=== PATIENT | female | born 1975 | race Caucasian/White ===

== ENCOUNTER → 2016-12-04 | Outpatient (CLI) | payer BC ==
[~2016-12-04] MED LIST: ABILIFY30 MG PO; ADVAIR 250/28 DISKU1 IH; ADVAIR DISKUS 21 DSK IH; ADVAIR IH; ALLEGRA60 MG PO; AMBIEN 5MG TABLE5 MG PO; AMBIEN10 MG PO; ATROVENT INHALE14 GM IH; BCP TD; BENADRYL25 M2 PO; CLARITIN10 MG PO; COLESTID 1GM1 G PO; CYMBALTA 60MG60 MG PO; DEPAKOTE ER 50500 MG PO; DOXYCYCLINE 10100 MG PO; ELESTRIN0.06% TOP; EPI-PEN1 MG/ML MR; EVAMIST1.53 MG/Ac TD; FLONASE NASAL S16 GM NS; KLONOPIN 0.5MG0.5 MG PO; MULTI VITAMINS1 TAB PO; MULTIPLE VITAMI1 CAP PO; MVI; NARCO PO; NORCO 325 MG-7.1 TAB PO; NORVASC5 MG PO; PERCOCET 5/321 UDTAB PO; PHENERGAN 25 TA25 MG PO; PHENERGAN25 MG RC; PREDNISONE20 MG PO; PRILOSEC 20MG20 MG PO; PRINIVIL40 MG PO; PROTONIX 40MG T40 MG PO; SEROQUEL 1100 MG/TAB PO; TUSS PO; ULTRAM 50MG TAB50 MG PO; VICODIN 5/5001 UDTAB PO; Z-pak; ZESTRIL 20MG TA20 MG PO; ZOFRAN ODT4 MG PO; ZOLOFT PO; [UNRECOGNIZED DRUG - OTHER]; [UNRECOGNIZED DRUG - REMARK] PO
== END ==
LOC: BHSO 11:34
DX: F31.74 Bipolar disorder, in full remission, most recent episode manic (principal)

== ENCOUNTER → 2017-01-07 | Outpatient (CLI) | payer BC | LOC: COL.RAD 09:36 | DX: K75.81 Nonalcoholic steatohepatitis (NASH) (principal); R79.89 Other specified abnormal findings of blood chemistry ==

== ENCOUNTER → 2017-03-11 | Outpatient (CLI) | payer BC | LOC: MC.RAD 03-04 11:00 | DX: Z12.31 Encounter for screening mammogram for malignant neoplasm of breast (principal) ==

== ENCOUNTER → 2017-04-16 | Outpatient (CLI) | payer BC | LOC: BHSO 11:32 | DX: F31.73 Bipolar disorder, in partial remission, most recent episode manic (principal) ==

== ENCOUNTER 2017-05-23 11:04 | Emergency (ER) | payer BC ==
[~2017-05-23] VITALS: Ht 172.7 cm; Wt 109.1 kg
[~2017-05-23 11:04] MED LIST changes: -BENADRYL25 M2 PO; -COLESTID 1GM1 G PO; -MULTI VITAMINS1 TAB PO; -ULTRAM 50MG TAB50 MG PO; -ZOFRAN ODT4 MG PO
[2017-05-23 11:06] VITALS: TEMP 97.6
[2017-05-23] MEDS ORDERED: BENADRYL25 M2 PO (11:37)
[2017-05-23] MEDS ORDERED: COLESTID 1GM1 G PO (11:37)
[2017-05-23] MEDS ORDERED: MULTI VITAMINS1 TAB PO (11:38)
[2017-05-23 11:58] LABS: BASO % 0.3 % (0.0-2.0); EOS # 0.2 (0.0-0.7); EOS % 1.9 % (0-4.0); GRAN # 8.8 (1.4-6.5); GRAN % 76.7 % (42.2-75.2); HEMATOCRIT 44.5 % (37.0-47.0); HEMOGLOBIN 15.7 g/dl (12.5-16.0); LYMPH # 1.5 (1.2-3.4); LYMPH % 13.3 % (20.0-51.0); MEAN CELL VOLUME 91 fl (80.0-100.0); MEAN CORPUSCULAR HEMOGLOBIN 32 pg (27.0-31.0); MEAN CORPUSCULAR HGB CONC 35 g/dl (33.0-37.0); MEAN PLATELET VOLUME 10.1 fl (7.4-10.4); MONO # 0.9 (0.1-0.6); MONO % 7.5 % (1.7-9.3); PLATELET COUNT 211 K/mm3 (130-400); RED BLOOD COUNT 4.88 M/mm3 (4.10-5.30); REDCELL DISTRIBUTION WIDTH-CV 12.2 % (11.5-14.5); WHITE BLOOD COUNT 11.5 K/mm3 (4.8-10.8)
[2017-05-23 12:18] LABS: PH 6 (5-8); URINE APPEARANCE Clear; URINE BILIRUBIN Negative (NEGATIVE); URINE BLOOD Negative (NEGATIVE); URINE COLOR Yellow; URINE GLUCOSE Negative (NEGATIVE); URINE KETONE Negative (NEGATIVE); URINE RBC 0-2 /hpf; URINE UROBILINOGEN Negative (NEGATIVE); URINE WBC 0-2 /hpf
[2017-05-23 12:26] LABS: ADJUSTED CALCIUM 8.7 mg/dL (8.4-10.2); ALBUMIN 4.1 gm/dL (3.5-5.0); BILIRUBIN,TOTAL 1.1 mg/dL (0.0-1.0); C-REACTIVE PROTEIN 0.6 mg/dL (0.0-0.9); CALCIUM 8.8 mg/dL (8.4-10.2); CREATININE, serum 0.73 mg/dL (0.52-1.25); TOTAL PROTEIN 6.8 gm/dL (6.4-8.2)
[2017-05-23] MEDS ORDERED: ZOFRAN ODT4 MG PO (14:15)
[2017-05-23 14:32] VITALS: BP 122/72; PULSE 80
== END 2017-05-23 14:34 | disposition home or self-care (01) ==
LOC: COL.ER 11:04
PROVIDERS: Nurse Practitioner
DX: R11.2 Nausea with vomiting, unspecified (principal); R19.7 Diarrhea, unspecified; I10 Essential (primary) hypertension; F31.9 Bipolar disorder, unspecified; F41.9 Anxiety disorder, unspecified; F17.210 Nicotine dependence, cigarettes, uncomplicated; Z87.19 Personal history of other diseases of the digestive system
CPT/HCPCS: J2405; J2550; J7030

== ENCOUNTER 2017-05-24 19:13 | Emergency (ER) | payer BC ==
[~2017-05-24] VITALS: Ht 172.7 cm; Wt 109.1 kg
[~2017-05-24 19:13] MED LIST changes: +BENADRYL25 M2 PO; +COLESTID 1GM1 G PO; +MULTI VITAMINS1 TAB PO; +ZOFRAN ODT4 MG PO
[2017-05-24 19:30] VITALS: TEMP 97.6
[2017-05-24 20:18] LABS: BASO % 0.3 % (0.0-2.0); EOS # 0.1 (0.0-0.7); EOS % 1.5 % (0-4.0); GRAN # 3.4 (1.4-6.5); GRAN % 50.8 % (42.2-75.2); HEMATOCRIT 42.2 % (37.0-47.0); HEMOGLOBIN 14.9 g/dl (12.5-16.0); LYMPH # 2.3 (1.2-3.4); LYMPH % 33.4 % (20.0-51.0); MEAN CELL VOLUME 91 fl (80.0-100.0); MEAN CORPUSCULAR HEMOGLOBIN 32 pg (27.0-31.0); MEAN CORPUSCULAR HGB CONC 35 g/dl (33.0-37.0); MEAN PLATELET VOLUME 9.9 fl (7.4-10.4); MONO # 0.9 (0.1-0.6); MONO % 13.9 % (1.7-9.3); PLATELET COUNT 208 K/mm3 (130-400); RED BLOOD COUNT 4.66 M/mm3 (4.10-5.30); REDCELL DISTRIBUTION WIDTH-CV 11.9 % (11.5-14.5); WHITE BLOOD COUNT 6.8 K/mm3 (4.8-10.8)
[2017-05-24 20:26] LABS: ADJUSTED CALCIUM 9.1 mg/dL (8.4-10.2); ALBUMIN 4.5 gm/dL (3.5-5.0); BILIRUBIN,TOTAL 1.5 mg/dL (0.0-1.0); CALCIUM 9.5 mg/dL (8.4-10.2); CREATININE, serum 0.73 mg/dL (0.52-1.25); POTASSIUM 3.8 mmol/L (3.4-5.0); TOTAL PROTEIN 7.4 gm/dL (6.4-8.2)
[2017-05-24 21:57] VITALS: BP 117/70; PULSE 79
== END 2017-05-24 23:10 | disposition home or self-care (01) ==
LOC: COL.ER 19:13
PROVIDERS: Emergency Medicine
DX: R10.84 Generalized abdominal pain (principal); R11.2 Nausea with vomiting, unspecified; R19.7 Diarrhea, unspecified; K58.9 Irritable bowel syndrome, unspecified; R55 Syncope and collapse
CPT/HCPCS: J1170; J2405; J2550; J7030

== ENCOUNTER 2017-05-26 11:23 | Emergency (ER) | payer BC ==
[~2017-05-26] VITALS: Ht 172.7 cm; Wt 109.1 kg
[2017-05-26 11:26] VITALS: TEMP 99.1
[2017-05-26 13:06] LABS: HEMATOCRIT 39.2 % (37.0-47.0); HEMOGLOBIN 13.7 g/dl (12.5-16.0); MEAN CELL VOLUME 92 fl (80.0-100.0); MEAN CORPUSCULAR HEMOGLOBIN 32 pg (27.0-31.0); MEAN CORPUSCULAR HGB CONC 35 g/dl (33.0-37.0); MEAN PLATELET VOLUME 10.3 fl (7.4-10.4); PLATELET COUNT 187 K/mm3 (130-400); RED BLOOD COUNT 4.26 M/mm3 (4.10-5.30); REDCELL DISTRIBUTION WIDTH-CV 11.9 % (11.5-14.5)
[2017-05-26 13:12] LABS: PH 8 (5-8); SQUAMOUS EPITHELIAL 0-2 /hpf; URINE APPEARANCE Clear; URINE BACTERIA None Seen /hpf; URINE BILIRUBIN Negative (NEGATIVE); URINE BLOOD 1+ (NEGATIVE); URINE COLOR Yellow; URINE GLUCOSE Negative (NEGATIVE); URINE KETONE Negative (NEGATIVE); URINE RBC 0-2 /hpf; URINE UROBILINOGEN Negative (NEGATIVE); URINE WBC 0-2 /hpf
[2017-05-26 13:14] LABS: ADD PATHOLOGY DIFF REVIEW NO
[2017-05-26 13:18] LABS: ADJUSTED CALCIUM 9.2 mg/dL (8.4-10.2); BILIRUBIN,TOTAL 0.8 mg/dL (0.0-1.0); C-REACTIVE PROTEIN 0.9 mg/dL (0.0-0.9); CALCIUM 9.2 mg/dL (8.4-10.2); CREATININE, serum 0.72 mg/dL (0.52-1.25); POTASSIUM 3.8 mmol/L (3.4-5.0)
[2017-05-26 13:56] LABS: BAND 3 % (0-10); EOSINOPHIL 3 % (0-4); NEUTROPHILS 44 % (42.0-75.2); TOTAL CELLS COUNTED 100
[2017-05-26 13:57] LABS: PLATELET ESTIMATE NORMAL (NORMAL)
[2017-05-26 14:22] VITALS: BP 119/81; PULSE 62
[2017-05-26] MEDS ORDERED: PHENERGAN25 MG RC (14:38)
[2017-05-26] MEDS ORDERED: ULTRAM 50MG TAB50 MG PO (14:38)
== END 2017-05-26 14:51 | disposition home or self-care (01) ==
LOC: COL.ER 11:23
PROVIDERS: Emergency Medicine
DX: K52.9 Noninfective gastroenteritis and colitis, unspecified (principal); S09.8XXA Other specified injuries of head, initial encounter; F41.9 Anxiety disorder, unspecified; R55 Syncope and collapse; K21.9 Gastro-esophageal reflux disease without esophagitis; F32.9 Major depressive disorder, single episode, unspecified; I10 Essential (primary) hypertension; K58.9 Irritable bowel syndrome, unspecified; F17.210 Nicotine dependence, cigarettes, uncomplicated; Z90.710 Acquired absence of both cervix and uterus; Z87.42 Personal history of other diseases of the female genital tract; X58.XXXA Exposure to other specified factors, initial encounter
CPT/HCPCS: J1170; J2060; J2765; J3010; J7030; Q9967

== ENCOUNTER → 2017-07-02 | Outpatient (CLI) | payer BC ==
[~2017-07-02] MED LIST changes: +ULTRAM 50MG TAB50 MG PO
== END ==
LOC: BHSO 10:56
DX: F41.1 Generalized anxiety disorder (principal)

== ENCOUNTER → 2017-08-30 | Outpatient (CLI) | payer BC | LOC: BHSO 11:27 | DX: F31.73 Bipolar disorder, in partial remission, most recent episode manic (principal) ==

== ENCOUNTER → 2017-10-08 | Outpatient (CLI) | payer BC | LOC: BHSO 10:58 | DX: F31.73 Bipolar disorder, in partial remission, most recent episode manic (principal) | CPT/HCPCS: G0463 ==

== ENCOUNTER → 2017-11-26 | Outpatient (CLI) | payer BC | LOC: COL.RAD 08:11 | DX: K76.0 Fatty (change of) liver, not elsewhere classified (principal) ==

== ENCOUNTER → 2018-01-04 | Outpatient (CLI) | payer BC | LOC: BHSO 10:47 | DX: F31.31 Bipolar disorder, current episode depressed, mild (principal) | CPT/HCPCS: G0463 ==

== ENCOUNTER → 2018-04-08 | Outpatient (CLI) | payer BC | LOC: BHSO 10:16 | DX: F41.0 Panic disorder [episodic paroxysmal anxiety] (principal) | CPT/HCPCS: G0463 ==

== ENCOUNTER → 2018-04-22 | Outpatient (CLI) | payer BC | LOC: MC.RAD 11:11 | DX: Z12.31 Encounter for screening mammogram for malignant neoplasm of breast (principal) ==

== ENCOUNTER → 2018-12-09 | Outpatient (CLI) | payer OTHER ==
[~2018-12-09] MED LIST changes: +CEPHALEXIN500 M1 PO; +ZOFRAN 4MG T4 MG/TAB PO
== END ==
LOC: COL.RAD 09:35
DX: K75.81 Nonalcoholic steatohepatitis (NASH) (principal)

== ENCOUNTER 2018-12-12 11:37 | Emergency (ER) | payer OTHER ==
[~2018-12-12] VITALS: Ht 172.7 cm; Wt 125.0 kg
[~2018-12-12 11:37] MED LIST changes: -CEPHALEXIN500 M1 PO; -ZOFRAN 4MG T4 MG/TAB PO
[2018-12-12 11:45] VITALS: TEMP 98.5
[2018-12-12 12:34] LABS: BASO % 0.3 % (0.0-2.0); EOS # 0.3 (0.0-0.7); EOS % 2.8 % (0-4.0); GRAN # 5.3 (1.4-6.5); GRAN % 53.3 % (42.2-75.2); HEMATOCRIT 46.3 % (37.0-47.0); HEMOGLOBIN 15.7 g/dl (12.5-16.0); LYMPH # 3.5 (1.2-3.4); LYMPH % 34.7 % (20.0-51.0); MEAN CELL VOLUME 93 fl (80.0-100.0); MEAN CORPUSCULAR HEMOGLOBIN 32 pg (27.0-31.0); MEAN CORPUSCULAR HGB CONC 34 g/dl (33.0-37.0); MONO # 0.9 (0.1-0.6); MONO % 8.7 % (1.7-9.3); PLATELET COUNT 188 K/mm3 (130-400); RED BLOOD COUNT 4.99 M/mm3 (4.10-5.30); REDCELL DISTRIBUTION WIDTH-CV 12.8 % (11.5-14.5)
[2018-12-12 12:47] LABS: ALBUMIN 4.2 gm/dL (3.5-5.0); BILIRUBIN,TOTAL 1.1 mg/dL (0.0-1.0); C-REACTIVE PROTEIN 0.7 mg/dL (0.0-0.9); CREATININE, serum 0.79 mg/dL (0.52-1.25); POTASSIUM 4.1 mmol/L (3.4-5.0); TOTAL PROTEIN 7.6 gm/dL (6.4-8.2)
[2018-12-12 13:53] LABS: COLLECTION METHOD CLEAN CATCH
[2018-12-12 14:08] LABS: MUCOUS Present /lpf; PH 6 (5-8); URINE APPEARANCE Hazy; URINE BACTERIA None Seen /hpf; URINE BILIRUBIN Negative (NEGATIVE); URINE BLOOD Negative (NEGATIVE); URINE COLOR Amber; URINE GLUCOSE Negative (NEGATIVE); URINE KETONE Trace (NEGATIVE); URINE LEUKOCYTE ESTERASE Negative (NEGATIVE); URINE NITRATE Negative (NEGATIVE); URINE PROTEIN(semi-quant) Negative (NEGATIVE)
[2018-12-12] MEDS ORDERED: ZOFRAN 4MG T4 MG/TAB PO (14:25)
[2018-12-12] MEDS ORDERED: CEPHALEXIN500 M1 PO (14:25)
[2018-12-12 14:39] VITALS: BP 117/83; PULSE 86
== END 2018-12-12 14:41 | disposition home or self-care (01) ==
LOC: COL.ER 11:37
PROVIDERS: Physician Assistant
DX: K52.9 Noninfective gastroenteritis and colitis, unspecified (principal); N39.0 Urinary tract infection, site not specified; F31.9 Bipolar disorder, unspecified; F17.210 Nicotine dependence, cigarettes, uncomplicated; G47.00 Insomnia, unspecified; K21.9 Gastro-esophageal reflux disease without esophagitis; I10 Essential (primary) hypertension; F41.9 Anxiety disorder, unspecified; Z90.89 Acquired absence of other organs; Z90.710 Acquired absence of both cervix and uterus
CPT/HCPCS: J2405; J7030

== ENCOUNTER 2019-05-23 22:39 | Emergency (ER) | payer BC ==
[~2019-05-23] VITALS: Ht 172.7 cm; Wt 122.7 kg
[~2019-05-23 22:39] MED LIST changes: +CEPHALEXIN500 M1 PO; +ZOFRAN 4MG T4 MG/TAB PO
[2019-05-23 22:43] VITALS: TEMP 99.1
[2019-05-23 23:12] LABS: BASO % 0.3 % (0.0-2.0); EOS # 0.2 (0.0-0.7); EOS % 1.7 % (0-4.0); GRAN # 4.8 (1.4-6.5); GRAN % 54.6 % (42.2-75.2); HEMATOCRIT 43.3 % (37.0-47.0); HEMOGLOBIN 14.8 g/dl (12.5-16.0); LYMPH # 2.7 (1.2-3.4); MEAN CELL VOLUME 93 fl (80.0-100.0); MEAN CORPUSCULAR HEMOGLOBIN 32 pg (27.0-31.0); MEAN CORPUSCULAR HGB CONC 34 g/dl (33.0-37.0); MEAN PLATELET VOLUME 10.2 fl (7.4-10.4); MONO # 1.1 (0.1-0.6); MONO % 12.1 % (1.7-9.3); PLATELET COUNT 149 K/mm3 (130-400); RED BLOOD COUNT 4.66 M/mm3 (4.10-5.30); REDCELL DISTRIBUTION WIDTH-CV 12.7 % (11.5-14.5)
[2019-05-23 23:27] LABS: ALBUMIN 4.1 gm/dL (3.5-5.0); C-REACTIVE PROTEIN 1.2 mg/dL (0.0-0.9); CALCIUM 8.7 mg/dL (8.4-10.2); CREATININE, serum 0.79 (0.52-1.25); MAGNESIUM 1.7 mg/dL (1.6-2.3); POTASSIUM 3.9 mmol/L (3.4-5.0); TOTAL PROTEIN 7.1 gm/dL (6.4-8.2)
[2019-05-24] MEDS ORDERED: CYMBALTA 30MG30 MG PO (00:48)
[2019-05-24] MEDS ORDERED: CYMBALTA 60MG60 MG PO (00:48)
[2019-05-24] MEDS ORDERED: SEROQUEL 200MG200 MG PO (00:49)
[2019-05-24] MEDS ORDERED: ESTRACE 1MG1 MG/TAB PO (00:49)
[2019-05-24] MEDS ORDERED: NORCO 325 MG-7.1 TAB PO (00:50)
[2019-05-24] MEDS ORDERED: BENADRYL25 M2 PO (00:51)
[2019-05-24] MEDS ORDERED: KLONOPIN 1MG1 MG PO (00:51)
[2019-05-24 01:46] LABS: COLLECTION METHOD CLEAN CATCH
[2019-05-24 01:57] LABS: MUCOUS Present /lpf; PH 5 (5-8); URINE APPEARANCE Hazy; URINE BACTERIA None Seen /hpf; URINE BILIRUBIN Negative (NEGATIVE); URINE BLOOD Negative (NEGATIVE); URINE COLOR Amber; URINE GLUCOSE Negative (NEGATIVE); URINE KETONE Negative (NEGATIVE); URINE LEUKOCYTE ESTERASE Negative (NEGATIVE); URINE NITRATE Negative (NEGATIVE); URINE PROTEIN(semi-quant) Negative (NEGATIVE); URINE RBC 0-2 /hpf; URINE UROBILINOGEN Negative (NEGATIVE)
[2019-05-24] MEDS ORDERED: ZOFRAN 4MG T4 MG/TAB PO (02:51)
[2019-05-24] MEDS ORDERED: COMPAZINE 110 MG/TAB PO (02:51)
[2019-05-24 03:05] VITALS: BP 130/85; PULSE 80
== END 2019-05-24 03:11 | disposition home or self-care (01) ==
LOC: COL.ER 22:39
PROVIDERS: Emergency Medicine
DX: R10.84 Generalized abdominal pain (principal); R55 Syncope and collapse; R11.2 Nausea with vomiting, unspecified; R19.7 Diarrhea, unspecified; E66.9 Obesity, unspecified; I10 Essential (primary) hypertension; J45.909 Unspecified asthma, uncomplicated; F17.210 Nicotine dependence, cigarettes, uncomplicated; K21.9 Gastro-esophageal reflux disease without esophagitis; F31.9 Bipolar disorder, unspecified; Z88.6 Allergy status to analgesic agent; Z88.1 Allergy status to other antibiotic agents; Z90.710 Acquired absence of both cervix and uterus
CPT/HCPCS: J0780; J2270; J2405; J7030

== ENCOUNTER → 2019-06-08 | Outpatient (CLI) | payer BC ==
[~2019-06-08] MED LIST changes: +COMPAZINE 110 MG/TAB PO; +CYMBALTA 30MG30 MG PO; +ESTRACE 1MG1 MG/TAB PO; +KLONOPIN 1MG1 MG PO; +SEROQUEL 200MG200 MG PO
== END ==
LOC: COL.RAD 08:36
DX: K75.81 Nonalcoholic steatohepatitis (NASH) (principal)

== ENCOUNTER 2019-06-14 13:04 | Day surgery (SDC) | payer BC ==
[~2019-06-14] VITALS: Ht 172.7 cm; Wt 124.1 kg
[2019-06-14] MEDS ORDERED: NATURAL MAGNES200 MG PO (13:43)
[2019-06-14] MEDS ORDERED: B COMPLEX #11 TAB (13:44)
[2019-06-14] MEDS ORDERED: PROBIOTIC ACID1 EAC3 PO (13:45)
[2019-06-14 14:16] VITALS: BP 114/69; PULSE 85; TEMP 97.9
[2019-06-14 15:20] VITALS: BP 124/79; PULSE 73; TEMP 97.6
[2019-06-14 15:35] VITALS: BP 122/77; PULSE 82
[2019-06-14 15:50] VITALS: BP 103/66; PULSE 76
[2019-06-14 16:05] VITALS: BP 108/74; PULSE 75
--- NOTE | 2019-06-14 16:15 | NUR ---
PT RETURNED FROM [facility] INTO BAY #4. PT ALERT, SLEEPY, ORIENTATED TO NAME AND PLACE. LUNGS CLEAR TO ALL [place]. HRR, BOWEL SOUNDS HYPO, PRESENT. DENIES N/V/D AT THIS TIME. OFFERED APPLE JUICE AND WATER. WILL MONITOR PROGRESS.
--- NOTE | 2019-06-14 16:27 | NUR ---
PT TOLERATED FOOD AND FLIUDS WITHOUT DIFFICUTLY. CONT TO DENY PAIN, NAUSEA, VOMITING OR DIARRHEA. IVF DC'D TO LEFT WRIST. TOLERATED WELL. WILL MONITOR
--- NOTE | 2019-06-14 16:30 | NUR ---
PT A/OX3, DENIES PAIN, NAUSEA OR VOMITING. DISCHARGE INSTRUCTIONS GIVEN. PT AND VOICE UNDERSTANDING. PT DC'D TO FAMILY VEHICLE VIA W/C. DRIVING.
== END 2019-06-14 16:33 | disposition home or self-care (01) ==
LOC: SDCO 13:04
DX: K29.71 Gastritis, unspecified, with bleeding (principal); R19.7 Diarrhea, unspecified; K64.4 Residual hemorrhoidal skin tags; K62.89 Other specified diseases of anus and rectum; Z79.899 Other long term (current) drug therapy; I10 Essential (primary) hypertension; K75.81 Nonalcoholic steatohepatitis (NASH); F17.210 Nicotine dependence, cigarettes, uncomplicated; K21.9 Gastro-esophageal reflux disease without esophagitis; F41.0 Panic disorder [episodic paroxysmal anxiety]; F31.9 Bipolar disorder, unspecified; E66.01 Morbid (severe) obesity due to excess calories; Z68.41 Body mass index [BMI] 40.0-44.9, adult
CPT/HCPCS: J2405; J2704; J7120

== ENCOUNTER → 2019-07-06 | Outpatient (CLI) | payer BC ==
[~2019-07-06] MED LIST changes: +B COMPLEX #11 TAB; +NATURAL MAGNES200 MG PO; +PROBIOTIC ACID1 EAC3 PO
== END ==
LOC: MC.RAD 09:41
DX: Z12.31 Encounter for screening mammogram for malignant neoplasm of breast (principal)

== ENCOUNTER 2019-10-30 12:04 | Emergency (ER) | payer BC ==
[2019-10-30 12:06] VITALS: TEMP 98
[2019-10-30 13:26] LABS: HEMATOCRIT 47.5 % (37.0-47.0); HEMOGLOBIN 16.4 g/dl (12.5-16.0); MEAN CELL VOLUME 92 fl (80.0-100.0); MEAN CORPUSCULAR HEMOGLOBIN 32 pg (27.0-31.0); MEAN CORPUSCULAR HGB CONC 35 g/dl (33.0-37.0); MEAN PLATELET VOLUME 10.5 fl (7.4-10.4); PLATELET COUNT 174 K/mm3 (130-400); RED BLOOD COUNT 5.17 M/mm3 (4.10-5.30); REDCELL DISTRIBUTION WIDTH-CV 12.4 % (11.5-14.5)
[2019-10-30 13:32] LABS: ALANINE AMINOTRANSFERASE 102 U/L (9-52); ALBUMIN 4.6 gm/dL (3.5-5.0); ALKALINE PHOSPHATASE 123 U/L (50-136); ANION GAP 10 mmol/L (7-16); AST,SGOT 81 U/L (15-37); BILIRUBIN,TOTAL 0.7 mg/dL (0.0-1.0); BLOOD UREA NITROGEN 17 mg/dL (7-17); C-REACTIVE PROTEIN < 0.5 mg/dL (0.0-0.9); CALCIUM 9.5 mg/dL (8.4-10.2); CARBON DIOXIDE 24 mmol/L (22-30); CHLORIDE 106 mmol/L (98-107); CREATININE, serum 0.69 (0.52-1.25); GLUCOSE 115 mg/dL (74-106); LIPASE 175 U/L (23-300); POTASSIUM 4.5 mmol/L (3.4-5.0); SODIUM 140 mmol/L (137-145); TOTAL PROTEIN 7.9 gm/dL (6.4-8.2)
[2019-10-30 13:43] LABS: TROPONIN-I < 0.012 ng/mL (0.000-0.035)
[2019-10-30 14:09] LABS: BAND 9 % (0-10); EOSINOPHIL 1 % (0-4); LYMPHOCYTE 12 % (20.0-51.0); NEUTROPHILS 68 % (42.0-75.2); PLATELET ESTIMATE NORMAL (NORMAL)
[2019-10-30] MEDS ORDERED: PHENERGAN 25 TA25 MG PO (14:37)
[2019-10-30 14:40] VITALS: BP 120/68; PULSE 87
== END 2019-10-30 15:10 | disposition home or self-care (01) ==
LOC: COL.ER 12:04
PROVIDERS: Emergency Medicine
DX: R11.2 Nausea with vomiting, unspecified (principal); R10.13 Epigastric pain; Z90.89 Acquired absence of other organs
CPT/HCPCS: J2270; J2550; J7030; Q9967

== ENCOUNTER → 2019-11-24 | Outpatient (CLI) | payer BC ==
[~2019-11-24] VITALS: Ht 172.7 cm; Wt 125.4 kg
[~2019-11-24] MED LIST changes: +IMODIUM 2MG CAPS2 MG PO; +Work Release
[2019-11-24 08:41] VITALS: BP 132/94; PULSE 71
[2019-11-24 09:28] VITALS: BP 145/90; PULSE 65
[2019-11-24 09:32] VITALS: BP 122/74; PULSE 99
[2019-11-24 09:33] VITALS: BP 151/83; PULSE 98
[2019-11-24 09:34] VITALS: BP 138/81; PULSE 97
[2019-11-24 09:35] VITALS: BP 137/82; PULSE 95
== END ==
LOC: COL.CARD 07:57
DX: R55 Syncope and collapse (principal)
CPT/HCPCS: A9500

== ENCOUNTER 2019-12-01 07:19 | Day surgery (SDC) | payer BC ==
[2019-12-01] VITALS (14 sets, daily range): BP systolic 105–178; BP diastolic 78–110; PULSE 74–94; TEMP 98.6
[~2019-12-01] VITALS: Ht 172.7 cm; Wt 123.3 kg
[~2019-12-01 07:19] MED LIST changes: +CLARITIN 1010 MG/TAB PO; -CLARITIN10 MG PO; -SEROQUEL 200MG200 MG PO
[2019-12-01 08:10] LABS: HEMATOCRIT 42.6 % (37.0-47.0); HEMOGLOBIN 14.5 g/dl (12.5-16.0); MEAN CELL VOLUME 93 fl (80.0-100.0); MEAN CORPUSCULAR HEMOGLOBIN 32 pg (27.0-31.0); MEAN CORPUSCULAR HGB CONC 34 g/dl (33.0-37.0); MEAN PLATELET VOLUME 10.1 fl (7.4-10.4); PLATELET COUNT 174 K/mm3 (130-400); RED BLOOD COUNT 4.57 M/mm3 (4.10-5.30); REDCELL DISTRIBUTION WIDTH-CV 12.6 % (11.5-14.5)
[2019-12-01 08:22] LABS: PROTHROMBIN TIME 11.5 SECONDS (9.7-12.8)
[2019-12-01 08:23] LABS: CALCIUM 9.3 mg/dL (8.4-10.2); CREATININE, serum 0.79 (0.52-1.25); POTASSIUM 4.2 mmol/L (3.4-5.0)
[2019-12-01 08:25] LABS: PARTIAL THROMBOPLASTIN TIME 34.9 SECONDS (26.0-37.0)
[2019-12-01] MEDS ORDERED: PHENERGAN 25 TA25 MG PO (08:25)
[2019-12-01] MEDS ORDERED: VITAMIN B COMPL1 SGL PO (08:27)
[2019-12-01] MEDS ORDERED: PRINIVIL5 MG PO (08:29)
--- NOTE | 2019-12-01 09:08 | NUR ---
SEE MERGE DOCUMENTATION FOR MEDICATION ADMINISTRATION TIMES AND INTRA/POST PROCEDURE SEDATION ASSESSMENTS.
--- NOTE | 2019-12-01 10:00 | NUR ---
Report received from TAIWO Toscano.Will await patient's arrival.
--- NOTE | 2019-12-01 15:10 | NUR ---
Discharge instructions given to pt.Pt verbalizes understanding.INT removed,catheter tip intact.Pt escorted out via wheelchair by this nurse.
== END 2019-12-01 16:17 | disposition home or self-care (01) ==
LOC: COL.CAR 07:19
PROVIDERS: Internal Medicine Cardiovascular Disease
DX: R94.39 Abnormal result of other cardiovascular function study (principal); J45.20 Mild intermittent asthma, uncomplicated; K76.0 Fatty (change of) liver, not elsewhere classified; F31.81 Bipolar II disorder; K21.9 Gastro-esophageal reflux disease without esophagitis; I10 Essential (primary) hypertension; E78.1 Pure hyperglyceridemia; R73.01 Impaired fasting glucose; K58.0 Irritable bowel syndrome with diarrhea; M17.0 Bilateral primary osteoarthritis of knee; N97.9 Female infertility, unspecified; F17.210 Nicotine dependence, cigarettes, uncomplicated; Z90.710 Acquired absence of both cervix and uterus; Z88.1 Allergy status to other antibiotic agents; Z88.6 Allergy status to analgesic agent; Z88.8 Allergy status to other drugs, medicaments and biological substances; Z88.3 Allergy status to other anti-infective agents; Z79.52 Long term (current) use of systemic steroids
CPT/HCPCS: J1644; J2250; J3010; Q9967

== ENCOUNTER 2019-12-04 09:03 | Day surgery (SDC) | payer BC ==
[~2019-12-04] VITALS: Ht 172.7 cm; Wt 121.8 kg
[2019-12-04] VITALS (7 sets, daily range): BP systolic 107–135; BP diastolic 65–85; PULSE 79–86; TEMP 97.7–98.1
[~2019-12-04 09:03] MED LIST changes: +PRINIVIL5 MG PO; +VITAMIN B COMPL1 SGL PO
[2019-12-04] MEDS ORDERED: NORCO 325 MG-7.1 TAB PO (13:07)
--- NOTE | 2019-12-04 13:33 | NUR ---
Patient arrives back to [facility] alert eating ice chips well. Patient monitor applied vitals stable. Patient reports pain and nausea are under control at the moment. Patient given juice, soda and muffin. Patient's spouse brought to bedside.
--- NOTE | 2019-12-04 13:45 | NUR ---
Patient reports pain is starting to increase. Patient educated will administer oral pain medication after eating her muffin. Patient's spouse is going to leave at this time to go back to work for a little bit. Patient resting comfortably on bed.
--- NOTE | 2019-12-04 14:00 | NUR ---
PRN oral pain medication administered at this time.
--- NOTE | 2019-12-04 14:30 | NUR ---
Patient reports pain has not gotten much better after PRN oral pain medication. Will adminster PRN IV pain medication.
--- NOTE | 2019-12-04 15:00 | NUR ---
Patient reports that she is starting to feel much better after PRN IV pain medication. Patient resting comfortably in bed at this time.
--- NOTE | 2019-12-04 15:45 | NUR ---
Dismissal instructions gone over with patient, she voices understanding and all questions answered. Patient thanks staff for the great care today.
--- NOTE | 2019-12-04 15:55 | NUR ---
Patient discharged to private vehicle that he is driving via wheelchair at ER enterance without any complications. Patient and family leave thanking staff for services.
[2019-12-05] MEDS ORDERED: NORCO 325 MG-7.1 TAB PO (09:09)
== END 2019-12-04 15:55 | disposition home or self-care (01) ==
LOC: SDCO 09:03
DX: K80.10 Calculus of gallbladder with chronic cholecystitis without obstruction (principal); I10 Essential (primary) hypertension; F17.210 Nicotine dependence, cigarettes, uncomplicated; Z88.1 Allergy status to other antibiotic agents; Z88.6 Allergy status to analgesic agent; Z88.8 Allergy status to other drugs, medicaments and biological substances; Z79.899 Other long term (current) drug therapy; K21.9 Gastro-esophageal reflux disease without esophagitis; F41.9 Anxiety disorder, unspecified; F41.0 Panic disorder [episodic paroxysmal anxiety]; F31.9 Bipolar disorder, unspecified; I25.10 Atherosclerotic heart disease of native coronary artery without angina pectoris; M79.7 Fibromyalgia; K76.0 Fatty (change of) liver, not elsewhere classified; N28.9 Disorder of kidney and ureter, unspecified; G89.29 Other chronic pain
CPT/HCPCS: A4216; J0330; J1100; J1885; J2270; J2405; J2704; J2710; J3010; J7120

== ENCOUNTER → 2020-05-02 | Outpatient (CLI) | payer BC | LOC: COL.RAD 04-30 08:15 | DX: R22.1 Localized swelling, mass and lump, neck (principal) ==

== ENCOUNTER 2020-05-08 23:47 | Emergency (ER) | payer OTHER ==
[~2020-05-08] VITALS: Ht 172.7 cm; Wt 125.0 kg
[2020-05-08 23:53] VITALS: TEMP 97.8
[2020-05-09 00:27] LABS: BASO % 0.4 % (0.0-2.0); EOS # 0.3 (0.0-0.7); EOS % 2.6 % (0-4.0); GRAN # 6.7 (1.4-6.5); GRAN % 66.4 % (42.2-75.2); HEMATOCRIT 45.7 % (37.0-47.0); HEMOGLOBIN 15.6 g/dl (12.5-16.0); LYMPH # 2.3 (1.2-3.4); MEAN CELL VOLUME 92 fl (80.0-100.0); MEAN CORPUSCULAR HEMOGLOBIN 32 pg (27.0-31.0); MEAN CORPUSCULAR HGB CONC 34 g/dl (33.0-37.0); MEAN PLATELET VOLUME 10.8 fl (7.4-10.4); MONO # 0.7 (0.1-0.6); MONO % 7.2 % (1.7-9.3); PLATELET COUNT 160 K/mm3 (130-400); RED BLOOD COUNT 4.95 M/mm3 (4.10-5.30); REDCELL DISTRIBUTION WIDTH-CV 12.6 % (11.5-14.5)
[2020-05-09 00:33] LABS: ALBUMIN 4.4 gm/dL (3.5-5.0); CALCIUM 9.5 mg/dL (8.4-10.2); CREATININE, serum 0.82 (0.52-1.25); POTASSIUM 4.3 mmol/L (3.4-5.0); TOTAL PROTEIN 7.9 gm/dL (6.4-8.2)
[2020-05-09 01:45] LABS: COLLECTION METHOD CLEAN CATCH
[2020-05-09] MEDS ORDERED: ALAVERT10 M1 PO (01:49)
[2020-05-09 01:50] LABS: MUCOUS Present /lpf; PH 7 (5-8); SQUAMOUS EPITHELIAL 0-2 /hpf; URINE APPEARANCE Clear; URINE BACTERIA Rare /hpf; URINE BILIRUBIN Negative (NEGATIVE); URINE BLOOD Negative (NEGATIVE); URINE COLOR Yellow; URINE GLUCOSE Negative (NEGATIVE); URINE KETONE Trace (NEGATIVE); URINE LEUKOCYTE ESTERASE Negative (NEGATIVE); URINE NITRATE Negative (NEGATIVE); URINE PROTEIN(semi-quant) 1+ (NEGATIVE); URINE UROBILINOGEN Negative (NEGATIVE)
[2020-05-09] MEDS ORDERED: DEPAKOTE500 MG PO (01:50)
[2020-05-09] MEDS ORDERED: ABILIFY30 MG PO (01:50)
[2020-05-09] MEDS ORDERED: CYMBALTA 60MG60 MG PO (01:52)
[2020-05-09] MEDS ORDERED: CYMBALTA 30MG30 MG PO (01:52)
[2020-05-09] MEDS ORDERED: PRINIVIL5 MG PO (01:53)
[2020-05-09] MEDS ORDERED: SEROQUEL XR200 MG PO (01:54)
[2020-05-09] MEDS ORDERED: PROTONIX 40MG T40 MG PO (01:54)
[2020-05-09] MEDS ORDERED: NORCO 325 MG-7.1 TAB PO (01:55)
[2020-05-09] MEDS ORDERED: ESTRACE 1MG1 MG/TAB PO (01:55)
[2020-05-09] MEDS ORDERED: KLONOPIN 1MG1 MG PO (01:56)
[2020-05-09] MEDS ORDERED: BENADRYL25 M2 PO (01:57)
[2020-05-09] MEDS ORDERED: ONE-A-DAY ESSE1 EACH PO (01:58)
[2020-05-09] MEDS ORDERED: CALCIUM CARBON650 M2 (01:58)
[2020-05-09] MEDS ORDERED: MAGNESIUM ELEME30 MG PO (01:59)
[2020-05-09] MEDS ORDERED: PHARMASSURE ZIN50 MG PO (01:59)
[2020-05-09] MEDS ORDERED: PROBIOTIC FORMU1 CAP PO (02:01)
[2020-05-09 02:58] VITALS: BP 119/75; PULSE 76
== END 2020-05-09 03:02 | disposition home or self-care (01) ==
LOC: COL.ER 23:47
PROVIDERS: Physician Assistant
DX: R10.13 Epigastric pain (principal); R11.10 Vomiting, unspecified; R19.7 Diarrhea, unspecified; F17.210 Nicotine dependence, cigarettes, uncomplicated; Z90.710 Acquired absence of both cervix and uterus; Z90.89 Acquired absence of other organs; Z90.49 Acquired absence of other specified parts of digestive tract
CPT/HCPCS: J1630; J2550; J7030

== ENCOUNTER → 2020-08-02 | Outpatient (CLI) | payer OTHER ==
[~2020-08-02] MED LIST changes: +ALAVERT10 M1 PO; +CALCIUM CARBON650 M2; +DEPAKOTE500 MG PO; +MAGNESIUM ELEME30 MG PO; +ONE-A-DAY ESSE1 EACH PO; +PHARMASSURE ZIN50 MG PO; +PROBIOTIC FORMU1 CAP PO; +SEROQUEL XR200 MG PO
== END ==
LOC: MC.RAD 09:41
DX: Z12.31 Encounter for screening mammogram for malignant neoplasm of breast (principal); N63.20 Unspecified lump in the left breast, unspecified quadrant

== ENCOUNTER → 2020-08-09 | Outpatient (CLI) | payer OTHER | LOC: MC.RAD 10:37 | DX: N63.20 Unspecified lump in the left breast, unspecified quadrant (principal) ==

== ENCOUNTER → 2021-02-07 | Outpatient (CLI) | payer OTHER | LOC: MC.RAD 11:00 | DX: N63.20 Unspecified lump in the left breast, unspecified quadrant (principal) ==

== ENCOUNTER → 2021-08-27 | Outpatient (CLI) | payer OTHER | LOC: MC.RAD 12:24 | DX: R92.8 Other abnormal and inconclusive findings on diagnostic imaging of breast (principal); N63.0 Unspecified lump in unspecified breast ==

== ENCOUNTER 2023-06-22 08:08 | Outpatient (CLI) | payer BC ==
[2023-06-22] VITALS (7 sets, daily range): BP systolic 99–139; BP diastolic 53–87; PULSE 65–89; TEMP 98.7
[~2023-06-22] VITALS: Ht 172.7 cm; Wt 124.0 kg
[~2023-06-22 08:08] MED LIST changes: +ABILIFY20 MG PO; +BENTYL 20MG20 MG/TAB PO; +ESTRACE0.5 MG PO; +REGLAN 5MG T5 MG/TAB PO
[2023-06-22] MEDS ORDERED: THORAZINE100 MG/TAB PO (09:23)
[2023-06-22] MEDS ORDERED: ATARAX 25MG25 MG/TAB PO (09:26)
--- NOTE | 2023-06-22 12:28 | NUR ---
Pt ambulated to EU11 scheduled for a Tilt table exam. Meds and HX reviewed with the pt. IV started, ekg done. Consent form for the procedure signed. Pt came back to EU11 post procedure. Reported nausea and a headache from the procedure. DR contacted, tylenol, zofran, and fluids ordred. Pt reported before discharge they were feeling better. Discharge educatin and informatin given to the pt. Pt exited the unit with a steady gait.
== END 2023-06-22 12:22 | disposition home or self-care (01) ==
LOC: COL.CAR 08:08
DX: R55 Syncope and collapse (principal)
CPT/HCPCS: J2405

== ENCOUNTER 2023-07-21 15:39 | Emergency (ER) | payer BC ==
[~2023-07-21] VITALS: Ht 172.7 cm; Wt 120.5 kg
[~2023-07-21 15:39] MED LIST changes: +ATARAX 25MG25 MG/TAB PO; +THORAZINE100 MG/TAB PO
[2023-07-21 15:46] VITALS: TEMP 97.8
[2023-07-21 16:16] LABS: BASO # 0.1 K/mm3 (0.0-0.2); BASO % 0.6 % (0.0-2.0); EOS # 0.2 K/mm3 (0.0-0.7); EOS % 1.6 % (0.0-4.0); GRAN # 7.3 K/mm3 (1.4-6.5); GRAN % 67.2 % (42.2-75.2); HEMATOCRIT 43.6 % (37.0-47.0); LYMPH # 2.5 K/mm3 (1.2-3.4); LYMPH % 23.5 % (20.0-51.0); MEAN CELL VOLUME 91 fl (80.0-100.0); MEAN CORPUSCULAR HEMOGLOBIN 31 pg (27-31); MEAN CORPUSCULAR HGB CONC 34 g/dl (33.0-37.0); MONO # 0.7 K/mm3 (0.1-0.6); MONO % 6.6 % (1.7-9.3); PLATELET COUNT 170 K/mm3 (130-400); REDCELL DISTRIBUTION WIDTH-CV 12.2 % (11.5-14.5)
[2023-07-21 16:37] LABS: ALBUMIN 3.9 gm/dL (3.5-5.0); BILIRUBIN,TOTAL 0.8 mg/dL (0.2-1.2); CALCIUM 9.5 mg/dL (8.4-10.2); CREATININE, serum 0.87 mg/dL (0.57-1.11); POTASSIUM 3.9 mmol/L (3.5-4.5); TOTAL PROTEIN 7.2 gm/dL (6.2-8.1)
[2023-07-21] MEDS ORDERED: FLEXERIL 1010 MG/TAB PO (17:30)
[2023-07-21 17:34] VITALS: BP 122/97; PULSE 77
== END 2023-07-21 18:00 | disposition home or self-care (01) ==
LOC: COL.ER 15:39
PROVIDERS: Emergency Medicine
DX: R51.9 Headache, unspecified (principal); R74.01 Elevation of levels of liver transaminase levels; F17.210 Nicotine dependence, cigarettes, uncomplicated; Z20.822 Contact with and (suspected) exposure to COVID-19
CPT/HCPCS: J0780; J1100; J1200; J2270; J2405; J7120

== ENCOUNTER 2023-10-01 05:22 | Day surgery (SDC) | payer BC ==
[~2023-10-01] VITALS: Ht 170.2 cm; Wt 117.7 kg
[~2023-10-01 05:22] MED LIST changes: +FLEXERIL 1010 MG/TAB PO
[2023-10-01] MEDS ORDERED: IMITREX50 MG PO (05:56)
[2023-10-01] MEDS ORDERED: TOPAMAX50 MG PO (05:57)
[2023-10-01] MEDS ORDERED: ZOFRAN 4MG T4 MG/TAB PO (05:58)
[2023-10-01] MEDS ORDERED: NORCO 325 MG-7.1 TAB PO (05:59)
[2023-10-01 06:24] VITALS: BP 130/72; PULSE 99; TEMP 98.2
--- NOTE | 2023-10-01 07:37 | NUR ---
0504 Pt ambulatory to bay 1 with steady gait, breathing even and unlabored. Pt is alert and oriented, accompanied by her mother. Consents reviewed and signed by patient. IV established. LR infusing via gravity at KVO. Call light in reach. warm blanket refused.
[2023-10-01 08:30] VITALS: BP 105/58; PULSE 67; TEMP 97.7
[2023-10-01 08:45] VITALS: BP 113/60; PULSE 65
[2023-10-01 09:00] VITALS: BP 120/68; PULSE 73
[2023-10-01 09:30] VITALS: BP 118/67; PULSE 71
--- NOTE | 2023-10-01 19:39 | NUR ---
0830: PT TO RECOVERY BAY 1 FROM PACU S/P CYSTOCOPY WITH BOTOX A&O, PLACED ON MONITOR, VSS ON RA RECEIVED REPORT AND ASSUMED CARE OF PT FROM [employer] MOM AT BEDSIDE HAS BEEN HAVING SUPRAPUBIC PAIN/CRAMPING POST-OP IN PACU, WH[place] [facility] [place]OD/FLUIDS, TOLERATING WELL 0915 REPORTING SUPRAPUBIC PAIN/ SPASM IS INCREASING AND INTOLERABLE 0921 50 MCG FENTANYL IVP ADMIN FOR SAME, TOLERATED WELL, VSS ON RA, RESULTING IN SIGNIFICANT RELIEF TO MILD/TOLERABLE PAIN. PT HAS REMAINED A&O, NAD, VSS ON RA, TOLERATING PO, IS WITHOUT SIGNIFICANT COMPLAINT, WITH STEADY GAIT BY END OF STAY 0935 IV D/C'D. D/C INSTRUCTIONS, PRN FOLLOW UP REVIEWED AND HANDED TO PT. ALL QUESTIONS AND CONCERNS ADDRESSED TO PT SATISFACTION. TAKEN TO EXIT VIA W/C WITH ALL BELONGINGS AND PAPERWORK IN HAND, ASSISTED INTO PASSENGER SEAT OF POV. MOM TO DRIVE HOME.
== END 2023-10-01 09:45 | disposition home or self-care (01) ==
LOC: SDCO 05:22
DX: N39.41 Urge incontinence (principal); G47.33 Obstructive sleep apnea (adult) (pediatric); E66.9 Obesity, unspecified; F17.210 Nicotine dependence, cigarettes, uncomplicated
CPT/HCPCS: A4215; J0585; J0690; J1100; J2405; J2704; J3010; J7120

== ENCOUNTER 2024-02-06 13:29 | Emergency (ER) | payer BC ==
[~2024-02-06] VITALS: Ht 170.2 cm; Wt 120.5 kg
[~2024-02-06 13:29] MED LIST changes: +IMITREX50 MG PO; +TOPAMAX50 MG PO
[2024-02-06 13:31] VITALS: TEMP 98.4
[2024-02-06] MEDS ORDERED: methylPREDNISolone Sod Succ 125 MG/2 ML VIAL IV ONE (16:00)
[2024-02-06] MEDS ORDERED: HYDROcodone/Chlorphen Polst ER Susp 10-8 MG/5 ML UD PO ONE (16:00)
[2024-02-06] MEDS ORDERED: PREDNISONE20 MG PO (17:41)
[2024-02-06] MEDS ORDERED: ZITHROMAX Z PA250 MG PO (17:41)
[2024-02-06] MEDS ORDERED: TESSALON PERLE200 MG PO (17:41)
[2024-02-06] MEDS ORDERED: Azithromycin 250 MG TAB PO ONE (17:45)
[2024-02-06 17:54] VITALS: BP 115/69; PULSE 87
== END 2024-02-06 18:13 | disposition home or self-care (01) ==
LOC: COL.ER 13:29
DX: J20.9 Acute bronchitis, unspecified (principal); Z88.2 Allergy status to sulfonamides
CPT/HCPCS: J2919

== ENCOUNTER 2024-04-02 21:19 | Emergency (ER) | payer BC ==
[~2024-04-02] VITALS: Ht 170.2 cm; Wt 118.2 kg
[~2024-04-02 21:19] MED LIST changes: +TESSALON PERLE200 MG PO; +ZITHROMAX Z PA250 MG PO
[2024-04-02 21:29] VITALS: TEMP 98.4
[2024-04-02] MEDS ORDERED: Pantoprazole 40 MG in NS 10 ML IV ONE (22:15)
[2024-04-02] MEDS ORDERED: NS 1,000 ML IV ONE (22:15)
[2024-04-02] MEDS ORDERED: Ondansetron 4 MG/2 ML VIAL IV ONE (22:15)
[2024-04-02 23:46] LABS: BASO % 0.2 % (0.0-2.0); EOS # 0.3 K/mm3 (0.0-0.7); EOS % 1.8 % (0.0-4.0); GRAN # 12.7 K/mm3 (1.4-6.5); GRAN % 74.8 % (42.2-75.2); HEMATOCRIT 44.8 % (37.0-47.0); HEMOGLOBIN 15.4 g/dl (12.5-16.0); LYMPH # 2.7 K/mm3 (1.2-3.4); LYMPH % 15.9 % (20.0-51.0); MEAN CELL VOLUME 91 fl (80.0-100.0); MEAN CORPUSCULAR HEMOGLOBIN 31 pg (27-31); MEAN CORPUSCULAR HGB CONC 34 g/dl (33.0-37.0); MEAN PLATELET VOLUME 10.7 fl (7.4-10.4); MONO # 1.2 K/mm3 (0.1-0.6); MONO % 6.8 % (1.7-9.3); PLATELET COUNT 182 K/mm3 (130-400); RED BLOOD COUNT 4.95 M/mm3 (4.10-5.30); REDCELL DISTRIBUTION WIDTH-CV 12.9 % (11.5-14.5)
[2024-04-03 00:02] LABS: ALBUMIN 4.4 g/dL (3.5-5.0); BILIRUBIN,TOTAL 0.9 mg/dL (0.2-1.2); CREATININE, serum 0.84 mg/dL (0.57-1.11); POTASSIUM 3.8 mEq/L (3.5-4.5); TOTAL PROTEIN 7.6 g/dl (6.2-8.1)
[2024-04-03] MEDS ORDERED: Iohexol 350 - 100 ML VIAL IV ONE (00:33)
[2024-04-03] MEDS ORDERED: NS 50 ML IV ONE (00:35)
[2024-04-03] MEDS ORDERED: droPERidol 2.5 MG/ML 2 ML VIAL IV ONE ×2 (00:45→04:00)
[2024-04-03] MEDS ORDERED: NS 1,000 ML IV ONE (02:15)
[2024-04-03 02:23] LABS: COLLECTION METHOD CLEAN CATCH
[2024-04-03] MEDS ORDERED: PHENERGAN 25 TA25 MG PO (02:30)
[2024-04-03] MEDS ORDERED: ZOFRAN ODT8 MG PO (02:30)
[2024-04-03 02:32] LABS: PH 5.5 (5.0-8.5); URINE APPEARANCE CLEAR (CLEAR/HAZY); URINE BLOOD NEGATIVE (NEGATIVE); URINE COLOR YELLOW (YELLOW); URINE GLUCOSE NEGATIVE (NEGATIVE); URINE KETONE NEGATIVE (NEGATIVE); URINE NITRATE NEGATIVE (NEGATIVE); URINE PROTEIN(semi-quant) NEGATIVE (NEGATIVE); URINE UROBILINOGEN 0.2 E.U/dL (0.2-1.0)
[2024-04-03 03:57] VITALS: BP 137/102; PULSE 92
== END 2024-04-03 04:03 | disposition home or self-care (01) ==
LOC: COL.ER 21:19
PROVIDERS: Nurse Practitioner Family
DX: E86.0 Dehydration (principal); R10.84 Generalized abdominal pain; R19.7 Diarrhea, unspecified; R55 Syncope and collapse; R11.2 Nausea with vomiting, unspecified; F17.200 Nicotine dependence, unspecified, uncomplicated; F17.210 Nicotine dependence, cigarettes, uncomplicated
CPT/HCPCS: C9113; J1790; J2405; J7030; Q9967

== ENCOUNTER → 2024-06-28 | Outpatient (CLI) | payer BC ==
[~2024-06-28] MED LIST changes: +ZOFRAN ODT8 MG PO
== END ==
LOC: MC.RAD 09:51
DX: Z12.31 Encounter for screening mammogram for malignant neoplasm of breast (principal)